=== PATIENT | female | born 1980 | race Two or more races ===

== ENCOUNTER 2017-06-09 13:19 | Emergency (ER) | payer SELFPAY ==
[~2017-06-09] VITALS: Ht 165.1 cm; Wt 72.6 kg
[2017-06-09 14:01] VITALS: BP 121/78
[2017-06-09 14:40] VITALS: BP 125/74
[2017-06-09 14:50] VITALS: BP 125/74
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
[2017-06-09] MEDS ORDERED: IBUPROFEN600 MG ORAL (15:12)
[2017-06-09] MEDS ORDERED: CYCLOBENZAPRINE10 MG ORAL (15:12)
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
== END 2017-06-09 15:00 | disposition home or self-care (01) ==
LOC: EDBD 13:19 → EMR 14:59
DX: S16.1XXA Strain of muscle, fascia and tendon at neck level, initial encounter (principal); S39.012A Strain of muscle, fascia and tendon of lower back, initial encounter; V43.62XA Car passenger injured in collision with other type car in traffic accident, initial encounter; Y93.9 Activity, unspecified; Y92.410 Unspecified street and highway as the place of occurrence of the external cause; M79.652 Pain in left thigh
CPT/HCPCS: 72020; 72125; 72170; 81025; 99284